=== PATIENT | female | born 2005 | race Hispanic/Latino ===

== ENCOUNTER 2024-06-23 17:28 | Emergency (ER) | payer BC, SELFPAY ==
[2024-06-23 17:33] VITALS: BP 124/71
--- NOTE | 2024-06-23 18:38 | ED.GENMED ---
History of Present Illness
General
Chief Complaint: Anal/Rectal Problem
Source: patient
Time Seen by Provider: 06/23/24 18:21
History of Present Illness
History of Present Illness:
19-year-old female presents emergency department with complaints of a hemorrhoid for the past 2 weeks. She feels like it is getting worse. She has been applying cortisone cream without full relief of symptoms. She denies abdominal pain, fever,
chills, nausea, vomiting, bleeding, or other complaints.
Past History
Past History
ED Past Medical History: Asthma and Other (constipation)
ED Past Surgical History: Orthopedic
Social History
Tobacco: Non-smoker
Alcohol: None
Drug: None
Personal: Single
Living: with roommate
Employment: Student
Family History
Family History: Other
Phy Exam
Physical Exam
Physical Exam:
GENERAL: Alert , in no apparent distress
EYE: pupils equal and round
NECK: Supple, no significant adenopathy.
ENT: o/p clr, mmm.
CARDIAC: Regular rate and rhythm .
LUNGS: Clear breath sounds bilaterally, no acute respiratory distress, no wheezes/rales/rhonchi
ABDOMEN: Soft, without focal tenderness, no r/g
NEUROLOGICAL: Alert and oriented, no focal neuro deficits
SKIN: Warm and dry, skin intact.
MUSCULOSKELETAL: No edema, well perfused.
PSYCH: Normal and appropriate interaction.
RECTAL : RN [facility] in room...small nonthrombosed hemorrhoid noted at 7 o'clock position, no bleed, no surround erythema/swelling etc
Course
Vital Signs
Initial and Last Documented VS:
Initial Vital Signs
Temp Pulse Resp BP Pulse Ox
98.2 F 76 16 124/71 97
06/23/24 17:33 06/23/24 17:33 06/23/24 17:33 06/23/24 17:33 06/23/24 17:33
Last Documented Vital Signs
Temp Pulse Resp BP Pulse Ox
98.2 F 76 16 124/71 97
06/23/24 17:33 06/23/24 17:33 06/23/24 17:33 06/23/24 17:33 06/23/24 17:33
*Critical Care Note
Total Time (30-74mins, 75-104mins- exclusive of procedures): Not Applicable
Update Note
Update Note:
Patient presents to the Emergency Department with suspected hemorrhoid
Number and Complexity of Problems Addressed at the Encounter
� Chronic conditions affecting care:
� Acute Exacerbation and/or Progression of Chronic Illness:
� Differential Diagnosis includes: But not limited to external hemorrhoid, thrombosed hemorrhoid, polyp, etc.
Amount and/or Complexity of Data to be Reviewed and Analyzed
� I performed an independent evaluation of and my interpretation is:
EKG:
CT:
Xrays:
Laboratory Studies:
Other:
� Review of other/old records reveals:
� Clinical information was obtained by an independent historian:
� Prescriptions/Medications Considered but not given:
� Further testing considered but not performed:
Risk of Complications and/or Morbidity or Mortality of Patient Management
� Social determinants of health affecting care:
� Discussion with other providers (PCP, Hospitalists, Consultants, etc):
� Escalation of care including admission/observation vs risk of discharge considered: Patient with simple nonthrombosed hemorrhoid. Will prescribe medications for healing, discussed with patient importance of follow-up and
reasons to return to the ER.
ED Attending Note
-
Portions of this chart may have been created with voice recognition software.� Occasional wrong word or��sound alike� substitutions may have occurred due to the inherent limitations of voice recognition software.
Discharge Plan
Departure
Patient Disposition: Home (Routine Discharge)
Date of Disposition: 06/23/24
Time of Disposition: 18:48
Patient with high blood pressure during this ER visit?: Yes
Condition: Good
Discharge Problem:
Acute hemorrhoid
Instructions: Hemorrhoids (DC), How to Do a Sitz Bath, BLOOD PRESSURE
Prescriptions:
New
witch el leaf (hamamelis) Pad
1 applic topical DAILY Qty: 48 0RF
docusate sodium 100 mg capsule
100 mg PO BID Qty: 60 0RF
lidocaine HCl-hydrocortison ac 3-0.5 % cream
1 applic [place] BID PRN (Reason: hemorrhoids) Qty: 98 0RF
No Action
prednisone 20 mg tablet
10 mg PO DAILY 4 Days Qty: 4 0RF
Referrals:
Carmine Bryan DO [Family Provider] - Follow up in 2-3 days
Activity Restrictions/Additional Instructions:
IF YOU DEVELOP FEVER, INCREASING/NEW PAIN, BLEEDING, ABDOMINAL PAIN, GET WORSE, DO NOT GET BETTER, OR OTHER WORRISOME SIGNS, GO TO THE ER IMMEDIATELY! YOUR PRESCRIPTIONS WERE SENT TO [facility] ON [address] [place] [address] [place].
Interventions
Interventions:
*Risk Screen - Suicide Last Done: 06/23/24 18:48
*General Assessment Last Done: 06/23/24 18:48
*Neglect/Abuse Screening Last Done: 06/23/24 18:48
ED-Skin Assessment Last Done: 06/23/24 18:47
Discharge Date and Time
Print Language: [place]IZ[place]
== END 2024-06-23 19:12 | disposition home or self-care (01) ==
LOC: EMR 17:28
PROVIDERS: EMERGENCY PHYSICIAN Emergency Medicine; FAMILY PHYSICIAN Family Medicine
DX: K64.9 Unspecified hemorrhoids (principal); J45.909 Unspecified asthma, uncomplicated
CPT/HCPCS: 99283